=== PATIENT | female | born 1945 | race Caucasian/White ===

== ENCOUNTER 2018-11-30 12:49 | Day surgery (SDC) | payer MEDICARE, OTHER ==
[2018-11-30 13:28] VITALS: RESP 20; TEMP 97.6
[2018-11-30 13:54] LABS: INR 0.9 (<1.2); Prothrombin Time 10.1 sec (9.0-12.0)
[2018-11-30 13:59] LABS: Mean Platelet Volume 6.9; Platelet Count 513 k/uL (150-450)
[2018-11-30 14:58] VITALS: BP 142/62; PULSE 84
--- NOTE | 2018-11-30 16:05 | US ---
EXAMINATION TYPE: US paracentesis abd w/image DATE OF EXAM: 11/30/2018 COMPARISON: NONE HISTORY: Ascites. PROCEDURE: Maximal barrier technique was utilized. The skin overlying a suitable pocket of fluid was localized with ultrasound and the overlying skin was prepped and draped. Ultrasound was utilized with sterile technique. Lidocaine was used for local anesthesia and a skin thelma made with a scalpel. Catheter was advanced under direct ultrasound guidance into a suitable pocket of fluid and approximately 5 liters of serous fluid were removed. Catheter was withdrawn and hemostasis achieved. There is no immediate complication; the patient is discharged in stable condition. IMPRESSION: STATUS POST ULTRASOUND GUIDED PARACENTESIS FOR PALLIATION OF ASCITES. THIS PROCEDURE WA S PERFORMED BY THE UNDERSIGNED.
== END 2018-11-30 13:10 | disposition home or self-care (01) ==
LOC: RADPROMAIN 12:49
PROVIDERS: ATTEND Internal Medicine Hematology & Oncology
DX: R18.8 Other ascites (principal); C48.2 Malignant neoplasm of peritoneum, unspecified
CPT/HCPCS: 36415; 49083; 82565; 85049; 85610

== ENCOUNTER 2018-12-07 12:27 | Day surgery (SDC) | payer MEDICARE, OTHER ==
[2018-12-07 13:01] LABS: Platelet Count 369 k/uL (150-450)
[2018-12-07 13:27] LABS: INR 0.9 (<1.2); Prothrombin Time 9.5 sec (9.0-12.0)
[2018-12-07 13:56] VITALS: RESP 18
[2018-12-07 14:09] VITALS: TEMP 98.5
--- NOTE | 2018-12-07 15:30 | US ---
Therapeutic paracentesis. DATE OF EXAM: 12/07/2018 CLINICAL HISTORY: Ascites The procedure was discussed with the patient. The risks, complications, benefits, and alternatives we re discussed and any questions were answered. Informed consent was obtained. The patient was placed s upine on the ultrasound table and prepped and draped in the usual sterile fashion. All elements of maximal barrier technique were utilized. Under ultrasound guidance, access into the left lower quadrant was obtained, via the paracentesis catheter system and direct ultrasound guidance . Approximately 2.8 liters of straw-colored fluid was removed. The patient was stable throughout the pr ocedure and remained stable upon discharge from Department of Radiology. IMPRESSION: Successful therapeutic paracentesis under ultrasound guidance.
[2018-12-07 15:41] VITALS: BP 132/70; PULSE 88
== END 2018-12-07 15:30 | disposition home or self-care (01) ==
LOC: RADPROMAIN 12:27
PROVIDERS: ATTEND Internal Medicine Hematology & Oncology
DX: R18.8 Other ascites (principal); C48.2 Malignant neoplasm of peritoneum, unspecified
CPT/HCPCS: 36415; 49083; 85049; 85610

== ENCOUNTER 2019-01-04 12:52 | Day surgery (SDC) | payer MEDICARE, OTHER ==
[2019-01-04 13:30] LABS: Mean Platelet Volume 6.1; Platelet Count 310 k/uL (150-450)
[2019-01-04 13:35] LABS: INR 0.9 (<1.2); Prothrombin Time 9.7 sec (9.0-12.0)
[2019-01-04 13:44] VITALS: RESP 16; TEMP 97.2
[2019-01-04 15:05] VITALS: BP 135/79; PULSE 78
--- NOTE | 2019-01-04 16:13 | US ---
EXAMINATION TYPE: US paracentesis abd w/image DATE OF EXAM: 01/04/2019 COMPARISON: NONE HISTORY: Ascites. PROCEDURE: Maximal barrier technique was utilized. The skin overlying a suitable pocket of fluid was localized with ultrasound and the overlying skin was prepped and draped. Ultrasound was utilized with sterile technique. Lidocaine was used for local anesthesia and a skin thelma made with a scalpel. Catheter was advanced under direct ultrasound guidance into a suitable pocket of fluid and approximately 1.3 liter s of serous fluid were removed. Catheter was withdrawn and hemostasis achieved. There is no immedia te complication; the patient is discharged in stable condition. IMPRESSION: STATUS POST ULTRASOUND GUIDED PARACENTESIS FOR PALLIATION OF ASCITES. THIS PROCEDURE WA S PERFORMED BY THE UNDERSIGNED.
== END 2019-01-04 15:00 | disposition home or self-care (01) ==
LOC: RADPROMAIN 12:52
PROVIDERS: ATTEND Internal Medicine Hematology & Oncology
DX: R18.8 Other ascites (principal); C48.2 Malignant neoplasm of peritoneum, unspecified
CPT/HCPCS: 36415; 49083; 85049; 85610

== ENCOUNTER → 2019-01-13 | Outpatient (CLI) | payer MEDICARE, OTHER ==
[2019-01-13 13:40] LABS: Blood Urea Nitrogen 19 mg/dL (7-17)
--- NOTE | 2019-01-13 14:46 | CT ---
EXAMINATION TYPE: CT ChestAbdPelvis w con DATE OF EXAM: 01/13/2019 COMPARISON: None HISTORY: Ovarian CA CT DLP: 1393 mGycm CONTRAST: CT scan of the chest, abdomen and pelvis is performed with Oral Contrast and with IV Contrast, patien t injected with 100 mL of Isovue 300. CT Chest: LUNGS: The lungs are clear and free of infiltrate or atelectasis. No pulmonary nodule or mass is det ected. No pleural effusion or CT evidence of interstitial lung disease. MEDIASTINUM: Thoracic aorta is of normal caliber. The heart is not enlarged. No evidence for media stinal mass or adenopathy. HILAR STRUCTURES: No evidence for mass. No hilar adenopathy is appreciated. OTHER: No significant abnormality. CONTRAST CT ABDOMEN AND PELVIS FINDINGS: LIVER/GB: No calcified gallstones. Hepatomegaly with underlying hepatic steatosis. No space occupy ing hepatic lesion. Biliary tree is of normal caliber. PANCREAS: No inflammation. No distinct mass. SPLEEN: No splenic enlargement. No lesion seen. Splenic granulomas. ADRENALS: No nodule. No thickening. KIDNEYS/BLADDER: No hydronephrosis. No nephrolithiasis. No disctinct renal mass. BOWEL: Normal appendix. Normal bowel caliber. No inflammation. GENITAL ORGANS: Adnexal nodularity identified. The uterus is grossly unremarkable. LYMPH NODES: No greater than 1cm abdominal or pelvic lymph nodes are appreciated. AORTA: No significant abnormality. OSSEOUS STRUCTURES: No significant abnormality is seen. OTHER: There is evidence for ascites within the upper abdomen and pelvis. There is omental and perito violeta nodularity identified. Largest nodules are seen within the left upper quadrant measuring 1.6 cm as well as adjacent to the transverse colon measuring 2.1 cm. Fluid within the left inguinal canal. IMPRESSION: 1. 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 2. Hepatomegaly with mild underlying hepatic steatosis.
== END | disposition home or self-care (01) ==
LOC: RADCTMAIN 12:44
PROVIDERS: ATTEND Internal Medicine Hematology & Oncology
DX: C48.2 Malignant neoplasm of peritoneum, unspecified (principal); R16.0 Hepatomegaly, not elsewhere classified
CPT/HCPCS: 82565; 84520; 71260; 74177; 36415; Q9967

== ENCOUNTER 2019-03-08 12:15 | Day surgery (SDC) | payer MEDICARE, OTHER ==
[2019-03-08 12:53] VITALS: RESP 16; TEMP 98.4
[2019-03-08 13:03] LABS: Mean Platelet Volume 6.7; Platelet Count 247 k/uL (150-450)
[2019-03-08 13:06] LABS: INR 0.9 (<1.2); Prothrombin Time 10.1 sec (9.0-12.0)
[2019-03-08 14:19] VITALS: BP 143/78; PULSE 80
--- NOTE | 2019-03-08 18:13 | US ---
EXAMINATION TYPE: US paracentesis abd w/image DATE OF EXAM: 03/08/2019 COMPARISON: NONE HISTORY: Ascites. PROCEDURE: Maximal barrier technique was utilized. The skin overlying a suitable pocket of fluid was localized with ultrasound and the overlying skin was prepped and draped. Ultrasound was utilized with sterile technique. Lidocaine was used for local anesthesia and a skin thelma made with a scalpel. Catheter was advanced under direct ultrasound guidance into a suitable pocket of fluid and approximately 2 liters of serous sanguinous fluid were removed. Catheter was withdrawn and hemostasis achieved. There is n o immediate complication; the patient is discharged in stable condition. IMPRESSION: STATUS POST ULTRASOUND GUIDED PARACENTESIS FOR PALLIATION OF ASCITES. THIS PROCEDURE WA S PERFORMED BY THE UNDERSIGNED.
== END 2019-03-08 14:00 | disposition home or self-care (01) ==
LOC: RADPROMAIN 12:15
PROVIDERS: ATTEND Internal Medicine Hematology & Oncology
DX: R18.8 Other ascites (principal)
CPT/HCPCS: 36415; 49083; 85049; 85610

== ENCOUNTER → 2019-03-23 | Outpatient (CLI) | payer MEDICARE, OTHER ==
[2019-03-23 09:41] LABS: African American GFR (CKD) >90 (>60 ml/min/1.73 sqM); Blood Urea Nitrogen 17 mg/dL (7-17); Non-African American GFR(CKD) 90 (>60 ml/min/1.73 sqM)
--- NOTE | 2019-03-23 11:19 | CT ---
EXAMINATION TYPE: CT ChestAbdPelvis w con DATE OF EXAM: 03/23/2019 COMPARISON: 01/13/2019 HISTORY: Peritoneal cancer CT DLP: 882.10 mGycm Automated exposure control for dose reduction was used. CONTRAST: CT scan of the chest, abdomen and pelvis is performed with Oral Contrast and with IV Contrast, patien t injected with 100 ml mL of Isovue 300. FINDINGS: CT Chest: LUNGS: The lungs are clear and free of infiltrate or atelectasis. On axial image 37 there is a 1 mm n odule in the right middle lobe small to characterize but retrospectively stable. MEDIASTINUM: Thoracic aorta is of normal caliber. The heart is not enlarged. No evidence for mediasti nal mass or adenopathy. HILAR STRUCTURES: No evidence for mass. No hilar adenopathy is appreciated. OTHER: No significant abnormality. CONTRAST CT ABDOMEN AND PELVIS FINDINGS: LIVER/GB: No calcified gallstones. Hepatomegaly with underlying hepatic steatosis. No space occupying hepatic lesion. Biliary tree is of normal caliber. PANCREAS: No inflammation. No distinct mass. SPLEEN: No splenic enlargement. No lesion seen. Splenic granulomas. ADRENALS: No nodule. No thickening. KIDNEYS/BLADDER: No hydronephrosis. No nephrolithiasis. Multiple hypodensities within the kidneys are stable and suggestive of renal cysts. BOWEL: Normal appendix. Normal bowel caliber. No inflammation. LYMPH NODES: No greater than 1cm abdominal or pelvic lymph nodes are appreciated. AORTA: No significant abnormality. OSSEOUS STRUCTURES: Hypertrophic and degenerative changes of the spine with facet arthropathy are not ed and grade 1 anterolisthesis L4 and L5. No definite destructive changes.. OTHER: Appears to be interval increase in amount of ascites. Marked heterogeneity involving the pelvi s may represent adnexal masses. Particularly the patient has a history of ovarian cancer. Ascitic flu id extends into the left inguinal canal. Heterogeneous appearing mass in the pelvis measures 9.1 x 9. 2 cm and is similar appearance to the prior exam.. There is omental and peritoneal thickening which is stable and suggestive of omental metastasis. The previous nodule noted within the left upper quadrant measuring 1.6 cm is not well-seen on today's exam. Previously noted nodule adjacent to the transverse colon measuring 2.1 cm. Again measures 2.1 cm and is stable. Stable 0.7 mm nodule left upper quadrant axial image 65. Additional punctate areas of omental nodular ity are also stable Fluid within the left inguinal canal. IMPRESSION: 1. There is interval resolution of a area of omental nodularity in the left upper quadrant which prev iously measured 1.6 cm. Without 2. The 2.1 cm area of suspected omental nodularity is stable and unchanged in size or morphology. 3. Marked heterogeneous appearance the pelvis again noted likely reflecting the patient's underlying history of ovarian malignancy. This demonstrates no significant interval appearance in size relative to the prior exam. 4. There is interval increase in the amount of ascites 5. Hepatomegaly with mild underlying hepatic steatosis. 6. Additional anterior omental thickening and subcentimeter nodularity is stable.
== END | disposition home or self-care (01) ==
LOC: RADCTMAIN 08:58
PROVIDERS: ATTEND Internal Medicine Hematology & Oncology
DX: K76.0 Fatty (change of) liver, not elsewhere classified (principal); R18.8 Other ascites; K66.8 Other specified disorders of peritoneum; C48.2 Malignant neoplasm of peritoneum, unspecified
CPT/HCPCS: 36415; 71260; 74177; 82565; 84520

== ENCOUNTER → 2019-04-14 | Outpatient (CLI) | payer MEDICARE, OTHER ==
--- NOTE | 2019-04-14 19:00 | ECHOF ---
Referral Reason:C56.9Malignant neoplasm of unspecified ovary MEASUREMENTS -------- HEIGHT: 152.4 cm WEIGHT: 69.9 kg BP: RVIDd: 3.5 cm (< 3.3) IVSd: 1.2 cm (0.6 - 1.1) LVIDd: 4.0 cm (3.9 - 5.3) LVPWd: 1.3 cm (0.6 - 1.1) IVSs: 1.5 cm LVIDs: 2.9 cm LVPWs: 1.4 cm LAESV Index (A-L): 15.98 ml/m Ao Diam: 2.9 cm (2.0 - 3.7) AV Cusp: 1.7 cm (1.5 - 2.6) LA Diam: 3.7 cm (2.7 - 3.8) EPSS: 1.5 cm MV E Charlie: 0.58 m/s MV DecT: 197 ms MV A Charlie: 1.03 m/s MV E/A Ratio: 0.57 RAP: 5.00 mmHg RVSP: 26.10 mmHg MV EF SLOPE: 47.69 mm/s (70 - 150) MV EXCURSION: 0.98 cm (> 18.000) FINDINGS -------- Sinus rhythm. This was a technically adequate study. The left ventricular size is normal. There is mild concentric left ventricular hypertrophy. Overa ll left ventricular systolic function is normal with, an EF between 55 - 60 %. The diastolic fillin g pattern is normal for the age of the patient. The right ventricle is mildly enlarged. Left atrium is normal size by volume. The right atrial size is normal. Interatrial and interventricular septum intact. The aortic valve is trileaflet and appears structurally normal. There is no evidence of aortic regu rgitation. There is no evidence of aortic stenosis. There is trace mitral regurgitation. Mild tricuspid regurgitation present. There is no evidence of pulmonary hypertension. The right v entricular systolic pressure, as measured by Doppler, is 26.10mmHg. Trace/mild (physiologic) pulmonic regurgitation. The aortic root size is normal. The inferior vena cava is mildly dilated. There is no pericardial effusion. CONCLUSIONS -------- 1. Sinus rhythm. 2. This was a technically adequate study. 3. The left ventricular size is normal. 4. There is mild concentric left ventricular hypertrophy. 5. Overall left ventricular systolic function is normal with, an EF between 55 - 60 %. 6. The diastolic filling pattern is normal for the age of the patient. 7. The right ventricle is mildly enlarged. 8. Left atrium is normal size by volume. 9. The right atrial size is normal. 10. Interatrial and interventricular septum intact. 11. The aortic valve is trileaflet and appears structurally normal. 12. There is no evidence of aortic regurgitation. 13. There is no evidence of aortic stenosis. 14. There is trace mitral regurgitation. 15. Mild tricuspid regurgitation present. 16. There is no evidence of pulmonary hypertension. 17. The right ventricular systolic pressure, as measured by Doppler, is 26.10mmHg. 18. Trace/mild (physiologic) pulmonic regurgitation. 19. The aortic root size is normal. 20. The inferior vena cava is mildly dilated. 21. There is no pericardial effusion. RAIL SWITCHMAN: Peyton Gonzalez RDCS
== END | disposition home or self-care (01) ==
LOC: RADECHMAIN 13:48
PROVIDERS: ATTEND Obstetrics & Gynecology
DX: I07.1 Rheumatic tricuspid insufficiency (principal); I87.8 Other specified disorders of veins; C56.9 Malignant neoplasm of unspecified ovary
CPT/HCPCS: 93306

== ENCOUNTER 2019-05-18 12:59 | Day surgery (SDC) | payer MEDICARE, OTHER ==
[2019-05-18 13:31] VITALS: TEMP 97.8
[2019-05-18 13:38] LABS: Mean Platelet Volume 5.6; Platelet Count 363 k/uL (150-450)
[2019-05-18 14:20] LABS: Prothrombin Time 10.3 sec (9.0-12.0)
[2019-05-18 15:37] VITALS: RESP 16
[2019-05-18 15:58] VITALS: BP 128/60; PULSE 73
--- NOTE | 2019-05-18 16:42 | US ---
EXAMINATION TYPE: US paracentesis abd w/image DATE OF EXAM: 05/18/2019 COMPARISON: NONE HISTORY: Ascites. PROCEDURE: Maximal barrier technique was utilized. The skin overlying a suitable pocket of fluid was localized with ultrasound and the overlying skin was prepped and draped. Ultrasound was utilized with sterile technique. Lidocaine was used for local anesthesia and a skin thelma made with a scalpel. Catheter was advanced under direct ultrasound guidance into a suitable pocket of fluid and approximately 6.5 liter s of serous sanguinous fluid were removed. Catheter was withdrawn and hemostasis achieved. There is no immediate complication; the patient is discharged in stable condition. IMPRESSION: STATUS POST ULTRASOUND GUIDED PARACENTESIS FOR PALLIATION OF ASCITES. THIS PROCEDURE WA S PERFORMED BY THE UNDERSIGNED.
== END 2019-05-18 15:49 | disposition home or self-care (01) ==
LOC: RADPROMAIN 12:59
PROVIDERS: ATTEND Internal Medicine Hematology & Oncology
DX: R18.8 Other ascites (principal); C48.2 Malignant neoplasm of peritoneum, unspecified
CPT/HCPCS: 49083; 82565; 85049; 85610; 85730

== ENCOUNTER 2019-06-12 12:21 | Day surgery (SDC) | payer MEDICARE, OTHER ==
[2019-06-12 12:59] VITALS: RESP 18; TEMP 98
[2019-06-12 13:04] LABS: Mean Platelet Volume 6.8; Platelet Count 254 k/uL (150-450)
[2019-06-12 13:29] LABS: INR 0.9 (<1.2); Prothrombin Time 9.6 sec (9.0-12.0)
[2019-06-12 15:18] VITALS: BP 129/70; PULSE 75
--- NOTE | 2019-06-12 15:56 | US ---
EXAMINATION TYPE: US paracentesis abd w/image DATE OF EXAM: 06/12/2019 COMPARISON: NONE HISTORY: Ascites. PROCEDURE: Maximal barrier technique was utilized. The skin overlying a suitable pocket of fluid was localized with ultrasound and the overlying skin was prepped and draped. Ultrasound was utilized with sterile technique. Lidocaine was used for local anesthesia and a skin thelma made with a scalpel. Catheter was advanced under direct ultrasound guidance into a suitable pocket of fluid and approximately 5.9 liter s of sanguinous fluid were removed. Catheter was withdrawn and hemostasis achieved. There is no imm ediate complication; the patient is discharged in stable condition. IMPRESSION: STATUS POST ULTRASOUND GUIDED PARACENTESIS FOR PALLIATION OF ASCITES. THIS PROCEDURE WA S PERFORMED BY THE UNDERSIGNED.
== END 2019-06-12 15:10 | disposition home or self-care (01) ==
LOC: RADPROMAIN 12:21
PROVIDERS: ATTEND Internal Medicine Hematology & Oncology
DX: R18.8 Other ascites (principal); C48.2 Malignant neoplasm of peritoneum, unspecified
CPT/HCPCS: 36415; 49083; 85049; 85610

== ENCOUNTER 2019-06-29 12:24 | Day surgery (SDC) | payer MEDICARE, OTHER ==
[2019-06-29 12:53] LABS: Mean Platelet Volume 6.7; Platelet Count 178 k/uL (150-450)
[2019-06-29 12:56] VITALS: RESP 16; TEMP 98.4
[2019-06-29 14:25] VITALS: BP 119/71; PULSE 76
--- NOTE | 2019-06-29 15:00 | US ---
EXAMINATION TYPE: US paracentesis abd w/image DATE OF EXAM: 06/29/2019 COMPARISON: NONE HISTORY: Ascites. PROCEDURE: Maximal barrier technique was utilized. The skin overlying a suitable pocket of fluid was localized with ultrasound and the overlying skin was prepped and draped. Ultrasound was utilized with sterile technique. Lidocaine was used for local anesthesia and a skin thelma made with a scalpel. Catheter was advanced under direct ultrasound guidance into a suitable pocket of fluid and approximately 2.2 liter s of sanguinous fluid were removed. Catheter was withdrawn and hemostasis achieved. There is no imm ediate complication; the patient is discharged in stable condition. IMPRESSION: STATUS POST ULTRASOUND GUIDED PARACENTESIS FOR PALLIATION OF ASCITES. THIS PROCEDURE WA S PERFORMED BY THE UNDERSIGNED.
== END 2019-06-29 14:05 | disposition home or self-care (01) ==
LOC: RADPROMAIN 12:24
PROVIDERS: ATTEND Internal Medicine Hematology & Oncology
DX: R18.8 Other ascites (principal); C48.2 Malignant neoplasm of peritoneum, unspecified
CPT/HCPCS: 36415; 49083; 85049

== ENCOUNTER → 2019-07-03 | Outpatient (CLI) | payer MEDICARE, OTHER ==
[2019-07-03 12:23] LABS: African American GFR (CKD) >90 (>60 ml/min/1.73 sqM); Blood Urea Nitrogen 16 mg/dL (7-17)
--- NOTE | 2019-07-03 13:54 | CT ---
EXAMINATION TYPE: CT ChestAbdPelvis w con DATE OF EXAM: 07/03/2019 COMPARISON: 03/23/2019 HISTORY: No chest complaints at time of scan CT DLP: 613.2 mGycm CONTRAST: CT scan of the chest, abdomen and pelvis is performed with Oral Contrast and with IV Contrast, patien t injected with 100 mL of Isovue 300. CT Chest: LUNGS: The lungs are clear and free of infiltrate or atelectasis. No pulmonary nodule or mass is det ected. No pleural effusion or CT evidence of interstitial lung disease. MEDIASTINUM: Thoracic aorta is of normal caliber. The heart is not enlarged. No evidence for media stinal mass or adenopathy. HILAR STRUCTURES: No evidence for mass. No hilar adenopathy is appreciated. OTHER: No significant abnormality. CONTRAST CT ABDOMEN AND PELVIS FINDINGS: LIVER/GB: Redemonstrated is hepatomegaly with underlying hepatic steatosis. No calcified gallstones . No space occupying hepatic lesion. Biliary tree is of normal caliber. PANCREAS: No inflammation. No distinct mass. SPLEEN: No splenic enlargement. No lesion seen. ADRENALS: No nodule. No thickening. KIDNEYS/BLADDER: No hydronephrosis. No nephrolithiasis. No disctinct renal mass. BOWEL: Normal appendix. Normal bowel caliber. No inflammation. GENITAL ORGANS: No gross abnormality. LYMPH NODES: No greater than 1cm abdominal or pelvic lymph nodes are appreciated. AORTA: No significant abnormality. OSSEOUS STRUCTURES: No significant abnormality is seen. OTHER: There is persistent moderate ascites throughout the abdomen and pelvis. Areas of scattered ome ntal nodularity persists. The largest nodule is seen at the midline anteriorly image 73 measures 1.7 cm previously noted nodule at the level of the umbilicus currently measures 1.2 cm versus 2 cm previo usly. Large heterogenous mass which is partially cystic partially solid within the pelvis is again no tuan and measures an estimated 8.5 x 7.8 cm versus 7.9 x 7.9 cm previously. There is increasing hypode nsity within the mass may reflect interval calcification. IMPRESSION: 1. Persistent omental caking and nodularity which appears essentially unchanged although there is a s emperatriz new nodule identified as discussed above. 2. The amount of ascites throughout the abdomen and pelvis remains essentially unchanged. 3. Stable complex pelvic mass.
== END | disposition home or self-care (01) ==
LOC: RADCTMAIN 11:46
PROVIDERS: ATTEND Internal Medicine Hematology & Oncology
DX: R18.8 Other ascites (principal); R91.1 Solitary pulmonary nodule; C48.2 Malignant neoplasm of peritoneum, unspecified
CPT/HCPCS: 82565; 84520; 71260; 74177; 36415; Q9967 ×2

== ENCOUNTER 2019-07-21 12:21 | Day surgery (SDC) | payer MEDICARE, OTHER ==
[2019-07-21 12:49] LABS: Platelet Count 185 k/uL (150-450)
[2019-07-21 12:54] VITALS: RESP 16; TEMP 97.7
[2019-07-21 12:54] LABS: INR 0.9 (<1.2); Prothrombin Time 10.2 sec (9.0-12.0)
[2019-07-21 14:34] VITALS: BP 119/61; PULSE 75
--- NOTE | 2019-07-21 15:47 | US ---
EXAMINATION TYPE: US paracentesis abd w/image DATE OF EXAM: 07/21/2019 COMPARISON: NONE HISTORY: Ascites. PROCEDURE: Maximal barrier technique was utilized. The skin overlying a suitable pocket of fluid was localized with ultrasound and the overlying skin was prepped and draped. Ultrasound was utilized with sterile technique. Lidocaine was used for local anesthesia and a skin thelma made with a scalpel. Catheter was advanced under direct ultrasound guidance into a suitable pocket of fluid and approximately 3 liters of dark sanguinous fluid were removed. Catheter was withdrawn and hemostasis achieved. There is no immediate complication; the patient is discharged in stable condition. IMPRESSION: STATUS POST ULTRASOUND GUIDED PARACENTESIS FOR PALLIATION OF ASCITES. THIS PROCEDURE WA S PERFORMED BY THE UNDERSIGNED.
== END 2019-07-21 14:25 | disposition home or self-care (01) ==
LOC: RADPROMAIN 12:21
PROVIDERS: ATTEND Internal Medicine Hematology & Oncology
DX: R18.8 Other ascites (principal); C48.2 Malignant neoplasm of peritoneum, unspecified
CPT/HCPCS: 36415; 49083; 85049; 85610

== ENCOUNTER 2019-08-15 14:31 | Inpatient (IN) | payer MEDICARE, OTHER ==
[2019-08-15] MEDS ORDERED: MORPHINE SULFATE 4 MG/ML SYRINGE IV STA (15:00)
[2019-08-15] MEDS ORDERED: SODIUM CHLORIDE 0.9% 1,000 ML IV STA (15:00)
[2019-08-15] MEDS ORDERED: ONDANSETRON 4 MG/2 ML VIAL IVP STA (15:00)
[2019-08-15 15:25] LABS: Basophils % (A) 0 %; Eosinophils % (A) 0 %; HGB 11.3 gm/dL (11.4-16.0); Lymphocytes # (A) 0.4 k/uL (1.0-4.8); Lymphocytes % (A) 4 %; MCH 32.4 pg (25.0-35.0); MCHC 33.3 g/dL (31.0-37.0); MCV 97.3 fL (80.0-100.0); Mean Platelet Volume 7.1; Monocytes # (A) 0.4 k/uL (0-1.0); Monocytes % (A) 5 %; Neutrophils # (A) 8.2 k/uL (1.3-7.7); Neutrophils % (A) 89 %; Platelet Count 185 k/uL (150-450); RBC 3.49 m/uL (3.80-5.40); RDW 15.6 % (11.5-15.5); WBC 9.1 k/uL (3.8-10.6)
[2019-08-15 15:32] LABS: ALT 8 U/L (4-34); AST 22 U/L (14-36); African American GFR (CKD) >90 (>60 ml/min/1.73 sqM); Albumin 3.1 g/dL (3.5-5.0); Alkaline Phosphatase 95 U/L (38-126); Amylase <30 U/L (30-110); Anion Gap 6 mmol/L; Blood Urea Nitrogen 16 mg/dL (7-17); Calcium 8.9 mg/dL (8.4-10.2); Carbon Dioxide 25 mmol/L (22-30); Chloride 106 mmol/L (98-107); Glucose 147 mg/dL (74-99); Non-African American GFR(CKD) >90 (>60 ml/min/1.73 sqM); Potassium 3.8 mmol/L (3.5-5.1); Sodium 137 mmol/L (137-145); Total Bilirubin 1.1 mg/dL (0.2-1.3); Total Protein 5.9 g/dL (6.3-8.2)
[2019-08-15 15:35] LABS: Partial Thromboplastin Time 25.6 sec (22.0-30.0); Prothrombin Time 10.5 sec (9.0-12.0)
--- NOTE | 2019-08-15 15:39 | ED ---
Abdominal Pain HPI - General Chief Complaint: Abdominal Pain Stated Complaint: ABD PAIN Time Seen by Provider: 08/15/19 14:39 Source: patient, RN notes reviewed, old records reviewed Mode of arrival: EMS - History of Present Illness Initial Comments: 73-year-old female presents emergency department today with chief complaint of 3 days of right-sided rib pain, complains of some shortness of breath. Patient states that she is also had some low-grade fevers. She does have history of stage IV ovarian cancer and significant ascites. reports that she had chemotherapy approximately one week ago. Patient states that she typically has paracentesis once a month. She is scheduled for an upcoming paracentesis. Patient states that she's been taking Tylenol at home. - Related Data Home Medications Medication Instructions Recorded Confirmed Vitamin E (Dl,Tocopheryl Acet) 800 unit PO DAILY 05/15/19 07/21/19 [Vitamin E] Non Formulary Drug 1 each IV ONCE 06/12/19 07/21/19 Allergies Allergy/AdvReac Type Severity Reaction Status Date / Time No Known Allergies Allergy Verified 07/21/19 12:51 Review of Systems ROS Statement: Those systems with pertinent positive or pertinent negative responses have been documented in the HPI. ROS Other: All systems not noted in ROS Statement are negative. Past Medical History Past Medical History: Cancer, Hyperlipidemia Additional Past Medical History / Comment(s): chemo started 11/25/18 (plan for 6 treatments) Stage 4 ovarian CA History of Any Multi-Drug Resistant Organisms: None Reported Past Surgical History: Tubal Ligation Additional Past Surgical History / Comment(s): ectopic , multi paracentesis Past Anesthesia/Blood Transfusion Reactions: No Reported Reaction Past Psychological History: Anxiety Smoking Status: Former smoker Past Alcohol Use History: None Reported Past Drug Use History: Marijuana - Past Family History Mother Family Medical History: No Reported History General Exam - General Exam Comments Initial Comments: 73-year-old female. Alert and oriented. General appearance: alert, in no apparent distress Head exam: Present: atraumatic, normocephalic, normal inspection Eye exam: Present: normal appearance, PERRL, EOMI. Absent: scleral icterus, conjunctival injection, periorbital swelling ENT exam: Present: normal exam, mucous membranes moist Neck exam: Present: normal inspection. Absent: tenderness, meningismus, lymphadenopathy Respiratory exam: Present: normal lung sounds bilaterally. Absent: respiratory distress, wheezes, rales, rhonchi, stridor Cardiovascular Exam: Present: regular rate, normal rhythm, normal heart sounds. Absent: systolic murmur, diastolic murmur, rubs, gallop, clicks GI/Abdominal exam: Present: soft, tenderness (Patient has distended abdomen. Right upper quadrant tenderness.), normal bowel sounds. Absent: distended, gu arding, rebound, rigid Extremities exam: Present: normal inspection, full ROM, normal capillary refill. Absent: tenderness, pedal edema, joint swelling, calf tenderness Back exam: Present: normal inspection Neurological exam: Present: alert, oriented X3, CN II-XII intact Psychiatric exam: Present: normal affect, normal mood Skin exam: Present: warm, dry, intact, normal color. Absent: rash Course Vital Signs 08/15/19 08/15/19 08/15/19 14:56 15:04 15:56 Temperature 99.1 F 98.9 F Pulse Rate 91 90 77 Respiratory 17 15 17 Rate Blood Pressure 123/72 123/74 O2 Sat by Pulse 97 97 Oximetry Medical Decision Making - Medical Decision Making Patient is a 73-year-old female with stage IV ovarian cancer. She presents today with her with complaints of right-sided rib pain. She also reports she's been having some shortness of breath. Initial concern was for pulmonary embolus. Lab work was obtained. No leukocytosis. EKG shows no ST changes. Patient's CT [facility] chest was completed. There is positive for small right pulmonary artery pulmonary emboli. Patient does have significant ascites as well and is scheduled paracentesis on Wednesday. I discussed patient's right- sided pain is likely related to the PE. Patient is a history of high intensity heparin. Discussed the case with Dr. Yuan. Discusses asymmetry hospitalist. Will have consult to Dr. Gilman patient's oncologist. - Lab Data Result diagrams: 08/15/19 14:45 08/15/19 14:45 Lab Results 08/15/19 08/15/19 08/15/19 Range/Units 14:45 14:45 14:45 WBC 9.1 (3.8-10.6) k/uL RBC 3.49 L (3.80-5.40) m/uL Hgb 11.3 L (11.4-16.0) gm/dL Hct 34.0 (34.0-46.0) % MCV 97.3 (80.0-100.0) fL MCH 32.4 (25.0-35.0) pg MCHC 33.3 (31.0-37.0) g/dL RDW 15.6 H (11.5-15.5) % Plt Count 185 (150-450) k/uL Neutrophils % 89 % Lymphocytes % 4 % Monocytes % 5 % Eosinophils % 0 % Basophils % 0 % Neutrophils # 8.2 H (1.3-7.7) k/uL Lymphocytes # 0.4 L (1.0-4.8) k/uL Monocytes # 0.4 (0-1.0) k/uL Eosinophils # 0.0 (0-0.7) k/uL Basophils # 0.0 (0-0.2) k/uL PT 10.5 (9.0-12.0) sec INR 1.0 (<1.2) APTT 25.6 (22.0-30.0) sec Sodium 137 (137-145) mmol/L Potassium 3.8 (3.5-5.1) mmol/L Chloride 106 (98-107) mmol/L Carbon Dioxide 25 (22-30) mmol/L Anion Gap 6 mmol/L BUN 16 (7-17) mg/dL Creatinine 0.56 (0.52-1.04) mg/dL Est GFR (CKD-EPI)AfAm >90 (>60 ml/min/1.73 sqM) Est GFR (CKD-EPI)NonAf >90 (>60 ml/min/1.73 sqM) Glucose 147 H (74-99) mg/dL Plasma Lactic Acid David (0.7-2.0) mmol/L Calcium 8.9 (8.4-10.2) mg/dL Total Bilirubin 1.1 (0.2-1.3) mg/dL AST 22 (14-36) U/L ALT 8 (4-34) U/L Alkaline Phosphatase 95 (38-126) U/L Total Protein 5.9 L (6.3-8.2) g/dL Albumin 3.1 L (3.5-5.0) g/dL Amylase <30 L (30-110) U/L Lipase 15 L (23-300) U/L 12/24/19 Range/Units 14:45 WBC (3.8-10.6) k/uL RBC (3.80-5.40) m/uL Hgb (11.4-16.0) gm/dL Hct (34.0-46.0) % MCV (80.0-100.0) fL MCH (25.0-35.0) pg MCHC (31.0-37.0) g/dL RDW (11.5-15.5) % Plt Count (150-450) k/uL Neutrophils % % Lymphocytes % % Monocytes % % Eosinophils % % Basophils % % Neutrophils # (1.3-7.7) k/uL Lymphocytes # (1.0-4.8) k/uL Monocytes # (0-1.0) k/uL Eosinophils # (0-0.7) k/uL Basophils # (0-0.2) k/uL PT (9.0-12.0) sec INR (<1.2) APTT (22.0-30.0) sec Sodium (137-145) mmol/L Potassium (3.5-5.1) mmol/L Chloride (98-107) mmol/L Carbon Dioxide (22-30) mmol/L Anion Gap mmol/L BUN (7-17) mg/dL Creatinine (0.52-1.04) mg/dL Est GFR (CKD-EPI)AfAm (>60 ml/min/1.73 sqM) Est GFR (CKD-EPI)NonAf (>60 ml/min/1.73 sqM) Glucose (74-99) mg/dL Plasma Lactic Acid David 1.1 (0.7-2.0) mmol/L Calcium (8.4-10.2) mg/dL Total Bilirubin (0.2-1.3) mg/dL AST (14-36) U/L ALT (4-34) U/L Alkaline Phosphatase (38-126) U/L Total Protein (6.3-8.2) g/dL Albumin (3.5-5.0) g/dL Amylase (30-110) U/L Lipase (23-300) U/L 08/15/19 16:39 EKG shows normal sinus rhythm with anterior fascicular block. Nonspecific ST-T wave adamantly. Abnormal EKG. Ventricular rate of 81 bpm.. Intervals 182 ms. QRS duration 90 ms. QTc is 300/348 ms. - Radiology Data Radiology results: report reviewed CT [facility] chest shows small emboli in the right lower lobe pulmonary artery. Right lower lobe infiltrate and atelectasis and right pleural effusion. Evidence of abdominal ascites. Disposition Clinical Impression: Pulmonary emboli, Carcinoma of ovary, stage 4, Ascites Disposition: ADMITTED IP TO THIS HOSP Condition: Stable Is patient prescribed a controlled substance at d/c from ED?: No Referrals: Tanner Luna MD [Primary Care Provider] - 1-2 days Time of Disposition: 16:44
--- NOTE | 2019-08-15 16:13 | XR ---
EXAMINATION TYPE: XR chest 2V DATE OF EXAM: 08/15/2019 COMPARISON: NONE HISTORY: Short of breath TECHNIQUE: 2 views FINDINGS: There is elevated right diaphragm. There is linear density at the right lung base. There is old fracture left clavicle. There is no heart failure. There are densely calcified mediastinal granu franko. Bony thorax is intact. IMPRESSION: There is some scarring and atelectasis right lung base. No heart failure seen. Old granul omatous disease.
[2019-08-15] MEDS ORDERED: HEPARIN SODIUM,PORCINE 10,000 UNIT/ML 1 ML VIAL IV ONE (16:26)
[2019-08-15] MEDS ORDERED: HEPARIN SODIUM,PORCINE 5,000 UNIT/ML 1 ML VIAL IV PRN (16:26)
--- NOTE | 2019-08-15 16:29 | CT ---
EXAMINATION TYPE: CT chest angio for PE DATE OF EXAM: 08/15/2019 COMPARISON: HISTORY: Right rib pain, Hx of ovarian CA CT DLP: 193.8 mGycm Automated exposure control for dose reduction was used. CONTRAST: Performed with IV Contrast, patient injected with 100 mL of Isovue 370. There are 3-D post processed images. There is some infiltrate and atelectasis in the right lower lobe. There is right pleural effusion. Th ere is no pericardial effusion. There is mild pleural thickening in the lingula left upper lobe. Ther e is moderate abdominal ascites. Liver margin is irregular suggestive of cirrhosis. Clinical correlat ion recommended. There are large pulmonary arteries. There are filling defects in the right lower lobe pulmonary arter y. Right ventricle has normal size. There is no mediastinal adenopathy. Thoracic aorta shows no aneurysm or dissection. Ascending aorta m easures 2.8 cm. The bony thorax is intact. IMPRESSION: Small emboli in the right lower lobe pulmonary artery. Right lower lobe infiltrate and atelectasis an d right pleural effusion. Abdominal ascites. Exam was discussed with Padmini Metcalf at 4:30 PM.
[2019-08-15] MEDS ORDERED: HYDROmorphone 1 MG/ML 1 ML SYRINGE IVP STA (16:45)
[2019-08-15] MEDS ORDERED: NALOXONE 0.4 MG/ML 1 ML VIAL IV PRN (16:45)
[2019-08-15] MEDS ORDERED: IBUPROFEN 400 MG TAB PO PRN (16:45)
[2019-08-15] MEDS ORDERED: ACETAMINOPHEN TAB 325 MG TAB PO PRN ×2 (16:45→17:36)
--- NOTE | 2019-08-15 16:46 | CT ---
EXAMINATION TYPE: CT abdomen pelvis w con DATE OF EXAM: 08/15/2019 COMPARISON: 07/03/2019 HISTORY: Right rib pain, Hx of ovarian CA CT DLP: 856.4 mGycm Automated exposure control for dose reduction was used. CONTRAST: Performed with IV Contrast, patient injected with 100 mL of Isovue 370. Multiple axial sections were obtained from the diaphragm to the floor the pelvis with intravenous con trast. There is large amount of abdominal ascites. There are numerous calcified splenic granulomata. Liver s hows no focal defect. Margin of the liver is somewhat irregular that could relate to loculated ascite s or cirrhosis. There is no evidence of pancreatic mass. Stomach is intact. There is small hiatal her frandy. There is infiltrate and atelectasis right lower lobe. There is small right pleural effusion. There is no adrenal mass. Kidneys show satisfactory contrast opacification. There is no hydronephrosi s. There are a few bilateral small renal cortical cysts measuring up to 1 cm. There is no retroperito violeta adenopathy. Uterus is anteverted. There are bilateral adnexal cystic masses consistent with larg e ovarian cysts that measure up to 6 cm. There is left inguinal hernia that contains ascites fluid. B ladder distends smoothly. There is no evidence of a bowel obstruction. There is no sign of mesenteric edema. Appendix is not de finitely seen. There is some spurring in the lumbar spine. There is no compression fracture. Posterio r elements are intact. Bony pelvis is intact. IMPRESSION: There is massive abdominal ascites that is increased compared to last exam and consistent with malign ant ascites in this patient with a history of ovary and cancer. There are large bilateral ovarian cys ts. Old granulomatous disease. There is new infiltrate and atelectasis and right pleural effusion and in the right lower lobe compared to old exam. There is left inguinal hernia unchanged.
[2019-08-15] MEDS: HEPARIN SOD,PORK IN 0.45% NACL 25,000 UNIT in 0.45% NACL 1 250ML.BAG IV SCH (16:48)
[2019-08-15] MEDS: SODIUM CHLORIDE 0.9% 1,000 ML IV SCH (17:12)
[2019-08-15 17:22] LABS: Appearance,Urine Clear (Clear); Bilirubin,Urine Negative (Negative); Blood,Urine Negative (Negative); Color,Urine Yellow; Glucose,Urine (UA) Negative (Negative); Ketones,Urine 1+ (Negative); Leukocyte Esterase,Urine Trace (Negative); Mucus,Urine Occasional /hpf; Nitrite,Urine Negative (Negative); PH, Urine 5.5 (5.0-8.0); Protein,Urine Trace (Negative); RBC,Urine 2 /hpf (0-5); Squamous Epithelial Cell,Urine 1 /hpf (0-4); Urobilinogen,Urine <2.0 mg/dL (<2.0); WBC,Urine 4 /hpf (0-5)
[2019-08-15 17:24] LABS: Specific Gravity,Urine >1.050 (1.001-1.035)
[2019-08-15] MEDS ORDERED: KETOROLAC 30 MG/ML 1 ML VIAL IVP PRN (17:28)
[2019-08-15] MEDS ORDERED: SENNOSIDES 8.6 MG TAB PO PRN (17:29)
[2019-08-15] MEDS ORDERED: POLYETHYLENE GLYCOL 3350 17 GM POWD.PACK PO PRN (17:29)
--- NOTE | 2019-08-15 17:36 | P.HPIM ---
History of Present Illness Patient is a pleasant 73-year-old female came in with complaints of right-sided hip pain is nonpleuritic pain and had a CT angios the chest which showed a small pulmonary embolism in the right lower lobe pulmonary artery patient pain is on the right side. Patient had a small right-sided pleural effusion as well. Patient has significant pain in spite of for this being a small PE. Patient was started on IV heparin which will be continued patient not be started on any oral anticoagulation as patient undergoes weekly paracentesis for her ovarian cancer with ascites. Patient completed 5 cycles of chemotherapy with the minimal response to ascites but significant response to see a 120 past for the patient patient had a recent chemotherapy. Patient follows up with Dr. Gilman 4 obesity and cancer as an outpatient. Dr. Gilman was consulted. The challenge here would be coordinating the paracentesis since she's gone away and anti- correlation and discuss with radiologist Dr. Roe who does her paracentesis and probably may need Lovenox rather than Eliquis which can be held 12 hours before the procedure have then 2 days with Eliquis for paracentesis. If Dr. Roe is agreeable not holding Eliquis patient can be started on Eliquis for now will continue with the IV heparin and ordered ultrasound guided paracentesis. Review of Systems REVIEW OF SYSTEMS: CONSTITUTIONAL: No fever, no malaise, no fatigue. HEENT: No recent visual problems or hearing problems. Denied any sore throat. CARDIOVASCULAR: orthopnea, PND, no palpitations, no syncope. PULMONARY: no cough, no hemoptysis. GASTROINTESTINAL: No diarrhea, no nausea, no vomiting, no abdominal pain. NEUROLOGICAL: No headaches, no weakness, no numbness. HEMATOLOGICAL: Denies any bleeding or petechiae. GENITOURINARY: Denies any burning micturition, frequency, or urgency. MUSCULOSKELETAL/RHEUMATOLOGICAL: Denies any joint pain, swelling, or any muscle pain. ENDOCRINE: Denies any polyuria or polydipsia. The rest of the 14-point review of systems is negative. Past Medical History Past Medical History: Cancer, Hyperlipidemia Additional Past Medical History / Comment(s): chemo started 11/25/18 (plan for 6 treatments) Stage 4 ovarian CA History of Any Multi-Drug Resistant Organisms: None Reported Past Surgical History: Tubal Ligation Additional Past Surgical History / Comment(s): ectopic , multi paracentesis Past Anesthesia/Blood Transfusion Reactions: No Reported Reaction Past Psychological History: Anxiety Smoking Status: Former smoker Past Alcohol Use History: None Reported Past Drug Use History: Marijuana - Past Family History Mother Family Medical History: No Reported History Medications and Allergies Home Medications Medication Instructions Recorded Confirmed Type Vitamin E (Dl,Tocopheryl Acet) 400 unit PO DAILY 05/15/19 08/15/19 History [Vitamin E] Acetaminophen Tab [Tylenol Tab] 650 mg PO Q6H PRN 08/15/19 08/15/19 History Allergies Allergy/AdvReac Type Severity Reaction Status Date / Time No Known Allergies Allergy Verified 08/15/19 17:10 Physical Exam Vitals: Vital Signs Temp Pulse Resp BP Pulse Ox 08/15/19 17:26 98.6 F 71 16 122/71 96 08/15/19 15:56 98.9 F 77 17 123/74 97 08/15/19 15:04 90 15 08/15/19 14:56 99.1 F 91 17 123/72 97 Intake and Output 08/15/19 08/15/19 08/15/19 06:59 14:59 22:59 Intake Total 800 Balance 800 Intake: Amount of Fluid Infused ( 800 ml) Other: Weight 63.049 kg PHYSICAL EXAMINATION: GENERAL: The patient is alert and oriented x3, not in any acute distress. Thin built female isn't bit of distress because of severe pain HEENT: Pupils are round and equally reacting to light. EOMI. No scleral icterus. No conjunctival pallor. Normocephalic, atraumatic. No pharyngeal erythema. No th yromegaly. CARDIOVASCULAR: S1 and S2 present. No murmurs, rubs, or gallops. PULMONARY: Chest is clear to auscultation, no wheezing or crackles. ABDOMEN: Distended nontender significant ascites with tingling numbness as well as fluid MUSCULOSKELETAL: No joint swelling or deformity. EXTREMITIES: No cyanosis, clubbing, or pedal edema. NEUROLOGICAL: Gross neurological examination did not reveal any focal deficits. SKIN: No rashes. Results CBC & Chem 7: 08/15/19 14:45 08/15/19 14:45 Labs: Abnormal Lab Results - Last 24 Hours (Table) 08/15/19 08/15/19 08/15/19 Range/Units 14:45 14:45 16:45 RBC 3.49 L (3.80-5.40) m/uL Hgb 11.3 L (11.4-16.0) gm/dL RDW 15.6 H (11.5-15.5) % Neutrophils # 8.2 H (1.3-7.7) k/uL Lymphocytes # 0.4 L (1.0-4.8) k/uL Glucose 147 H (74-99) mg/dL Total Protein 5.9 L (6.3-8.2) g/dL Albumin 3.1 L (3.5-5.0) g/dL Amylase <30 L (30-110) U/L Lipase 15 L (23-300) U/L Ur Specific [place] >1.050 H (1.001-1.035) Urine Protein Trace H (Negative) Urine Ketones 1+ H (Negative) Ur Leukocyte Esterase Trace H (Negative) Urine Mucus Occasional H (None) /hpf Assessment and Plan Plan: Right lower lobe pulmonary embolism acute: Patient will be on heparin because of above-mentioned issues, oncology will be consulted -Malignant ascites from her ovarian cancer will order ultrasound dated paracentesis therapeutic after which patient will be either started on lovenox or Eliquis. -Pain management with nonsteroidal anti-inflammatories and opiates and bowel regimen for opiate-induced constipation -Stress ulcer prophylaxis with Protonix-hyperlipidemia -Moderate protein calorie malnutrition from cancer cachexia
[2019-08-15] MEDS: HYDROmorphone 1 MG/ML 1 ML SYRINGE IVP PRN (20:31)
[2019-08-15] MEDS: ONDANSETRON 4 MG/2 ML VIAL IVP PRN (23:52)
[2019-08-16] MEDS: HYDROmorphone 1 MG/ML 1 ML SYRINGE IVP PRN ×2 (02:12→11:06)
[2019-08-16 08:37] LABS: African American GFR (CKD) >90 (>60 ml/min/1.73 sqM); Anion Gap 9 mmol/L; Blood Urea Nitrogen 17 mg/dL (7-17); Calcium 9.4 mg/dL (8.4-10.2); Carbon Dioxide 21 mmol/L (22-30); Chloride 107 mmol/L (98-107); Glucose 147 mg/dL (74-99); Non-African American GFR(CKD) >90 (>60 ml/min/1.73 sqM); Sodium 137 mmol/L (137-145)
[2019-08-16 08:50] LABS: Basophils % (A) 0 %; Eosinophils % (A) 0 %; HCT 31.2 % (34.0-46.0); Hypochromasia Moderate; Lymphocytes # (A) 0.7 k/uL (1.0-4.8); Lymphocytes % (A) 5 %; MCH 32.1 pg (25.0-35.0); MCHC 31.1 g/dL (31.0-37.0); Macrocytosis Moderate; Mean Platelet Volume 7.3; Monocytes # (A) 0.5 k/uL (0-1.0); Monocytes % (A) 4 %; Neutrophils # (A) 10.9 k/uL (1.3-7.7); Neutrophils % (A) 89 %; Platelet Count 215 k/uL (150-450); RBC 3.02 m/uL (3.80-5.40); RDW 15.9 % (11.5-15.5); WBC 12.3 k/uL (3.8-10.6)
[2019-08-16 08:57] LABS: HGB 9.7 gm/dL (11.4-16.0); MCV 103.4 fL (80.0-100.0)
[2019-08-16] MEDS ORDERED: PANTOPRAZOLE 40 MG/10 ML VIAL IV SCH (09:00)
[2019-08-16 10:50] LABS: Glucose,Whole Blood 229 mg/dL (75-99)
[2019-08-16] MEDS ORDERED: DEXAMETHASONE SOD PHOSPHATE 10 MG/ML 1 ML VIAL IV STA (12:11)
--- NOTE | 2019-08-16 12:13 | P.PN ---
Subjective Patient Was admitted for pulmonary embolism but patient still has pain in the right side of the chest which she had a pulmonary embolism patient had a syncopal episode in the bathroom which is a brief episode was evidenced by nursing staff. No evidence of bleed but that I had a PTT is elevated to 134 I'll obtain echocardiogram and patient will be started on IV fluids and patient does have ascites hoping to get paracentesis tomorrow after which patient will probably be started on oxygen and patient is also complaining of back pain severe with tingling greater to the both feet when I examined patient had some weakness of 4/5 strength in the left lower extremity because of which are not an MRI of lumbar and thoracic spine constrain her history of cancer and neurology will be consulted. Constitutional: Denied any fatigue denied any fever. Cardio vascular: denied any chest pain, palpitations Gastrointestinal denied any nausea vomiting Pulmonary: Denied any shortness of breath cough Neurologic as mentioned interval history All inpatient medications were reviewed and appropriate changes in these medications as dictated in the interval history and assessment and plan. Objective - Vital Signs Vital signs: Vital Signs Temp 97.8 F 08/16/19 07:55 Pulse 84 08/16/19 07:55 Resp 18 08/16/19 07:55 BP 115/58 08/16/19 07:55 Pulse Ox 94 L 08/16/19 07:55 Intake & Output 08/15/19 08/16/19 08/16/19 18:59 06:59 18:59 Intake Total 800 712.792 200 Balance 800 712.792 200 Weight 63.049 kg 65.1 kg Intake: Amount of Fluid Infused ( 800 ml) Intake, IV Titration 370.792 0 Amount Heparin Sod,Pork in 0.45% 90.792 0 NaCl 25,000 unit In 0.45 % NaCl 1 250ml.bag @ 18 UNITS/KG/HR 11.349 mls/hr IV .Q22H2M JEFF Rx#: [id number] Sodium Chloride 0.9% 1, 200 000 ml @ 100 mls/hr IV . Q10H STA Rx#:[id number] Sodium Chloride 0.9% 1, 80 000 ml @ 20 mls/hr IV . Q24H JEFF Rx#:[id number] Oral 342 200 Other: Voiding Method Toilet # Voids 2 3 - Exam PHYSICAL EXAMINATION: GENERAL: The patient is alert and oriented x3, not in any acute distress. Thin built female isn't bit of distress because of severe pain HEENT: Pupils are round and equally reacting to light. EOMI. No scleral icterus. No conjunctival pallor. Normocephalic, atraumatic. No pharyngeal erythema. No thyromegaly. CARDIOVASCULAR: S1 and S2 present. No murmurs, rubs, or gallops. PULMONARY: Chest is clear to auscultation, no wheezing or crackles. ABDOMEN: Distended nontender significant ascites with tingling numbness as well as fluid MUSCULOSKELETAL: No joint swelling or deformity. EXTREMITIES: No cyanosis, clubbing, or pedal edema. NEUROLOGICAL: Weakness in the left lower x-ray as mentioned above SKIN: No rashes. - Labs CBC & Chem 7: 08/16/19 08:00 08/16/19 08:00 Labs: Abnormal Lab Results - Last 24 Hours (Table) 08/15/19 08/15/19 08/15/19 Range/Units 14:45 14:45 16:45 WBC (3.8-10.6) k/uL RBC 3.49 L (3.80-5.40) m/uL Hgb 11.3 L (11.4-16.0) gm/dL Hct (34.0-46.0) % MCV (80.0-100.0) fL RDW 15.6 H (11.5-15.5) % Neutrophils # 8.2 H (1.3-7.7) k/uL Lymphocytes # 0.4 L (1.0-4.8) k/uL APTT (22.0-30.0) sec Carbon Dioxide (22-30) mmol/L Glucose 147 H (74-99) mg/dL POC Glucose (mg/dL) (75-99) mg/dL Total Protein 5.9 L (6.3-8.2) g/dL Albumin 3.1 L (3.5-5.0) g/dL Amylase <30 L (30-110) U/L Lipase 15 L (23-300) U/L Ur Specific [place] >1.050 H (1.001-1.035) Urine Protein Trace H (Negative) Urine Ketones 1+ H (Negative) Ur Leukocyte Esterase Trace H (Negative) Urine Mucus Occasional H (None) /hpf 12/24/19 12/25/19 12/25/19 Range/Units 23:34 08:00 08:00 WBC 12.3 H (3.8-10.6) k/uL RBC 3.02 L (3.80-5.40) m/uL Hgb 9.7 L D (11.4-16.0) gm/dL Hct 31.2 L (34.0-46.0) % MCV 103.4 H D (80.0-100.0) fL RDW 15.9 H (11.5-15.5) % Neutrophils # 10.9 H (1.3-7.7) k/uL Lymphocytes # 0.7 L (1.0-4.8) k/uL APTT >200.0 H* (22.0-30.0) sec Carbon Dioxide 21 L (22-30) mmol/L Glucose 147 H (74-99) mg/dL POC Glucose (mg/dL) (75-99) mg/dL Total Protein (6.3-8.2) g/dL Albumin (3.5-5.0) g/dL Amylase (30-110) U/L Lipase (23-300) U/L Ur Specific [place] (1.001-1.035) Urine Protein (Negative) Urine Ketones (Negative) Ur Leukocyte Esterase (Negative) Urine Mucus (None) /hpf 08/16/19 08/16/19 Range/Units 08:00 10:49 WBC (3.8-10.6) k/uL RBC (3.80-5.40) m/uL Hgb (11.4-16.0) gm/dL Hct (34.0-46.0) % MCV (80.0-100.0) fL RDW (11.5-15.5) % Neutrophils # (1.3-7.7) k/uL Lymphocytes # (1.0-4.8) k/uL APTT 134.6 H* (22.0-30.0) sec Carbon Dioxide (22-30) mmol/L Glucose (74-99) mg/dL POC Glucose (mg/dL) 229 H (75-99) mg/dL Total Protein (6.3-8.2) g/dL Albumin (3.5-5.0) g/dL Amylase (30-110) U/L Lipase (23-300) U/L Ur Specific [place] (1.001-1.035) Urine Protein (Negative) Urine Ketones (Negative) Ur Leukocyte Esterase (Negative) Urine Mucus (None) /hpf Assessment and Plan Plan: Right lower lobe pulmonary embolism acute: Patient will be on heparin because of above-mentioned issues, oncology will be consulted -Malignant ascites from her ovarian cancer will order ultrasound dated paracentesis therapeutic after which patient will be either started on lovenox or Eliquis. -Syncope patient will be monitored for any GI bleed Toradol will be discussed. -Back pain with a possible weakness in the left leg for which I'll consult neurology obtain MRI of lumbar thoracic spine will give her a dose of Decadron. -Stress ulcer prophylaxis with Protonix -hyperlipidemia -Moderate protein calorie malnutrition from cancer cachexia
[2019-08-16] MEDS: ONDANSETRON 4 MG/2 ML VIAL IVP PRN ×2 (12:17→21:21)
--- NOTE | 2019-08-16 16:44 | P.CNNES ---
History of Present Illness Consult date: 08/16/19 Requesting physician: Mary Bobby Reason for Consult: Weakness in the legs History of Present Illness: Patient is a 73-year-old female, who has been diagnosed with metastatic ovarian cancer, has been complaining of chest pain for 3 days, came to the ER yesterday at 3:30 PM. Patient had a chest x-ray which revealed some scarring and atelectasis right lung base. No heart failure seen. Old granulomatous disease. Patient had a CTA of chest which revealed small emboli in the right lower lobe pulmonary artery. Right lower lobe infiltrate and atelectasis and right pleural effusion. Abdominal ascites. CT of abdomen and pelvis showed massive abdominal ascites that is increased compared to the last exam from 07/03/2019, consistent with malignant ascites. There are large bilateral ovarian cysts. Old granu lomatous disease. EKG shows normal sinus rhythm. Blood test shows WBC 9.1 hemoglobin 11.3 and platelets 185. PT/PTT is normal. Chem-20 is normal. UA showed no significant signs of infection. Patient has been started on heparin. Her PTT has gone up to > 200. Patient today at around 11 AM, was walking to the bathroom, when she started fainting, her caught her and ease her to the ground. Patient did not hit anything significant. Since then patient has been complaining of left-sided low back pain, with pain and aching in the left anterior thigh and knee region. She rates it 5/10. Denies any numbness. Denies any symptoms in the other 3 extremities. Denies headache, diplopia. She also has been throwing up since an hour ago. Prior to this incident, she has not had any back pain, or leg pain as described. Patient has been receiving intravenous chemotherapy every 4 weeks since October or November 2018. The last chemotherapy she received was a week ago. She never had such symptoms with chemotherapy. Review of Systems As above in detail. Patient denies any chest pain. She does have aches and pains related to her metastatic ovarian cancer. Patient currently gets IV chemotherapy every 4 weeks since October or November 2018. The last chemotherapy was 1 week ago. Past Medical History Past Medical History: Cancer, Hyperlipidemia Additional Past Medical History / Comment(s): chemo started 11/25/18 (plan for 6 treatments) Stage 4 ovarian CA History of Any Multi-Drug Resistant Organisms: None Reported Past Surgical History: Tubal Ligation Additional Past Surgical History / Comment(s): ectopic , multi paracentesis Past Anesthesia/Blood Transfusion Reactions: No Reported Reaction Past Psychological History: Anxiety Smoking Status: Former smoker Past Alcohol Use History: None Reported Past Drug Use History: Marijuana - Past Family History Mother Family Medical History: No Reported History Medications and Allergies Home Medications Medication Instructions Recorded Confirmed Type Vitamin E (Dl,Tocopheryl Acet) 400 unit PO DAILY 05/15/19 08/15/19 History [Vitamin E] Acetaminophen Tab [Tylenol Tab] 650 mg PO Q6H PRN 08/15/19 08/15/19 History Allergies Allergy/AdvReac Type Severity Reaction Status Date / Time No Known Allergies Allergy Verified 08/15/19 17:10 Physical Examination - Vital Signs Vital Signs: Vital Signs Temp Pulse Pulse Resp BP BP Pulse Ox 08/16/19 16:05 97.7 F 95 18 109/59 93 L 08/16/19 11:30 97 18 95/52 94 L 08/16/19 11:15 90 18 116/63 95 08/16/19 11:00 90 18 96/55 98 08/16/19 10:53 88 16 119/57 94 L 08/16/19 10:43 94 16 106/60 93 L 08/16/19 07:55 97.8 F 84 18 115/58 94 L 08/16/19 04:00 98.3 F 80 18 112/75 95 08/16/19 00:00 74 18 08/15/19 23:01 98.1 F 74 18 117/70 97 08/15/19 20:00 98.4 F 75 18 110/64 96 08/15/19 18:07 98.1 F 75 18 121/65 93 L 08/15/19 17:26 98.6 F 71 16 122/71 96 Intake and Output 08/16/19 08/16/19 08/16/19 06:59 14:59 22:59 Intake Total 490.792 200 Balance 490.792 200 Intake: Intake, IV Titration 370.792 0 Amount Heparin Sod,Pork in 0.45% 90.792 0 NaCl 25,000 unit In 0.45 % NaCl 1 250ml.bag @ 18 UNITS/KG/HR 11.349 mls/hr IV .Q22H2M [facility] Rx#: [id number] Sodium Chloride 0.9% 1, 200 000 ml @ 100 mls/hr IV . Q10H [facility] Rx#:[id number] Sodium Chloride 0.9% 1, 80 000 ml @ 20 mls/hr IV . Q24H [facility] Rx#:[id number] Oral 120 200 Other: Voiding Method Toilet # Voids 2 3 Weight 65.1 kg On examination patient is an elderly female, who appears somewhat pale, cachectic. Patient is in no obvious distress. Her speech and language functions are normal. On cranial nerve examination, pupils are round and reacting, visual [place] are full, extraocular muscles are intact. Face is sym metric, tongue protrudes the midline. Palatal elevation and sensation normal. On muscle strength testing there is no pronator drift and the strength is normal in both arms and legs distally and proximally except left hip, which is 4. Reflexes are 1 in the upper limbs, 2 in the lower limbs and plantars are probably upgoing bilaterally. Sensory touch is equal. No ataxia for [id number] testing, although she is slightly ataxic for gzfv-[id number] testing on the left. Tone and bulk of muscles normal. Gait deferred. No carotid bruit or murmur. Results - Laboratory Findings CBC and BMP: 08/16/19 08:00 08/16/19 08:00 Abnormal Lab Findings: Abnormal Labs 08/15/19 08/15/19 08/15/19 14:45 14:45 16:45 WBC RBC 3.49 L Hgb 11.3 L Hct MCV RDW 15.6 H Neutrophils # 8.2 H Lymphocytes # 0.4 L APTT Carbon Dioxide Glucose 147 H POC Glucose (mg/dL) Total Protein 5.9 L Albumin 3.1 L Amylase <30 L Lipase 15 L Ur Specific [place] >1.050 H Urine Protein Trace H Urine Ketones 1+ H Ur Leukocyte Esterase Trace H Urine Mucus Occasional H 08/15/19 08/16/19 08/16/19 23:34 08:00 08:00 WBC 12.3 H RBC 3.02 L Hgb 9.7 L D Hct 31.2 L MCV 103.4 H D RDW 15.9 H Neutrophils # 10.9 H Lymphocytes # 0.7 L APTT >200.0 H* Carbon Dioxide 21 L Glucose 147 H POC Glucose (mg/dL) Total Protein Albumin Amylase Lipase Ur Specific [place] Urine Protein Urine Ketones Ur Leukocyte Esterase Urine Mucus 08/16/19 08/16/19 08:00 10:49 WBC RBC Hgb Hct MCV RDW Neutrophils # Lymphocytes # APTT 134.6 H* Carbon Dioxide Glucose POC Glucose (mg/dL) 229 H Total Protein Albumin Amylase Lipase Ur Specific [place] Urine Protein Urine Ketones Ur Leukocyte Esterase Urine Mucus Assessment and Plan Assessment: * 73-year-old female, who has developed acute left-sided low back pain, with radiation to the left anterior thigh region since she had a near syncopal episode few hours ago (while in the hospital). Patient did not fall or hit the ground, as her caught her. Patient is currently on heparin with elevated PTT, therefore at risk of psoas hematoma or ICH. * New onset nausea vomiting, could be related to severe ascites. Rule out intracranial/cerebellar process. * Metastatic ovarian cancer. * Acute pulmonary embolism, on heparin. Plan: * Agree with checking an MRI of the brain and lumbar spine with IV contrast. * We will follow the results.
[2019-08-16] MEDS: MORPHINE SULFATE 4 MG/ML SYRINGE IV PRN ×2 (16:59→21:21)
[2019-08-16] MEDS: HEPARIN SOD,PORK IN 0.45% NACL 25,000 UNIT in 0.45% NACL 1 250ML.BAG IV SCH (17:00)
--- NOTE | 2019-08-16 18:10 | P.CONS ---
History of Present Illness - Reason for Consult Consult date: 08/16/19 PE, ovarian cancer Requesting physician: Thomas E Serge - Chief Complaint chest pain - History of Present Illness Ms. Hammond is a very pleasant 73-year-old female who follows with Dr. Gilman for metastatic ovarian cancer, here for chest discomfort. Unfortunately I do not h ave access to our clinic EMR today. Sounds like patient was receiving chemotherapy since spring, last dose was about a week ago. Presents now with chest discomfort. CT of the chest showed a small right lower lobe PE as well as pleural effusions and an infiltrate in the right lower lobe. CT of the abdomen and pelvis showed large ascites and bilateral ovarian cysts. She was started on heparin drip and admitted. She had a syncopal episode this morning while her PTT was over 200. She did not fall, as her caught her fall. She began having right upper/lateral back pain since then. Her repeat hemoglobin went from 11 down to 9.7. There is concern for possible bleeding. Repeat PTT is now 134. Negative FOBT. She is now having back pain as well. Neurology on board. Denies any prolonged travel or recent hospital stay or immobility. No recent surgeries other than paracenteses that she gets regularly. Plan is to repeat paracenteses soon as well. No other complaints at this time. Review of Systems All systems: negative Constitutional: Reports as per HPI Past Medical History Past Medical History: Cancer, Hyperlipidemia Additional Past Medical History / Comment(s): chemo started 11/25/18 (plan for 6 treatments) Stage 4 ovarian CA History of Any Multi-Drug Resistant Organisms: None Reported Past Surgical History: Tubal Ligation Additional Past Surgical History / Comment(s): ectopic , multi paracentesis Past Anesthesia/Blood Transfusion Reactions: No Reported Reaction Past Psychological History: Anxiety Smoking Status: Former smoker Past Alcohol Use History: None Reported Past Drug Use History: Marijuana - Past Family History Mother Family Medical History: No Reported History Medications and Allergies Home Medications Medication Instructions Recorded Confirmed Type Vitamin E (Dl,Tocopheryl Acet) 400 unit PO DAILY 05/15/19 08/15/19 History [Vitamin E] Acetaminophen Tab [Tylenol Tab] 650 mg PO Q6H PRN 08/15/19 08/15/19 History Allergies Allergy/AdvReac Type Severity Reaction Status Date / Time No Known Allergies Allergy Verified 08/15/19 17:10 Physical Exam Vitals: Vital Signs Temp Pulse Pulse Resp BP BP Pulse Ox 08/16/19 16:05 97.7 F 95 18 109/59 93 L 08/16/19 11:30 97 18 95/52 94 L 08/16/19 11:15 90 18 116/63 95 08/16/19 11:00 90 18 96/55 98 08/16/19 10:53 88 16 119/57 94 L 08/16/19 10:43 94 16 106/60 93 L 08/16/19 07:55 97.8 F 84 18 115/58 94 L 08/16/19 04:00 98.3 F 80 18 112/75 95 08/16/19 00:00 74 18 08/15/19 23:01 98.1 F 74 18 117/70 97 08/15/19 20:00 98.4 F 75 18 110/64 96 08/15/19 18:07 98.1 F 75 18 121/65 93 L 08/15/19 17:26 98.6 F 71 16 122/71 96 Intake and Output 08/16/19 08/16/19 08/16/19 06:59 14:59 22:59 Intake Total 490.792 200 39.775 Balance 490.792 200 39.775 Intake: Intake, IV Titration 370.792 0 39.775 Amount Heparin Sod,Pork in 0.45% 90.792 0 39.775 NaCl 25,000 unit In 0.45 % NaCl 1 250ml.bag @ 18 UNITS/KG/HR 11.349 mls/hr IV .Q22H2M [facility] Rx#: [id number] Sodium Chloride 0.9% 1, 200 000 ml @ 100 mls/hr IV . Q10H [facility] Rx#:[id number] Sodium Chloride 0.9% 1, 80 000 ml @ 20 mls/hr IV . Q24H [facility] Rx#:[id number] Oral 120 200 Other: Voiding Method Toilet # Voids 2 3 Weight 65.1 kg Gen.: NAD HEENT: Mucosa moist, minimal conjunctival pallor. Neck: Supple, no thyromegaly. Lymph: No cervical lymphadenopathy. Lungs: CTAB. Heart: Regular rate. Abdomen: Soft, nontender. MSK: No obvious deformities. Skin: No jaundice. Psych: Appropriate affect Neuro: Alert and oriented 3. Results CBC & Chem 7: 08/16/19 08:00 08/16/19 08:00 Labs: Abnormal Lab Results - Last 24 Hours (Table) 08/15/19 08/15/19 08/16/19 Range/Units 16:45 23:34 08:00 WBC 12.3 H (3.8-10.6) k/uL RBC 3.02 L (3.80-5.40) m/uL Hgb 9.7 L D (11.4-16.0) gm/dL Hct 31.2 L (34.0-46.0) % MCV 103.4 H D (80.0-100.0) fL RDW 15.9 H (11.5-15.5) % Neutrophils # 10.9 H (1.3-7.7) k/uL Lymphocytes # 0.7 L (1.0-4.8) k/uL APTT >200.0 H* (22.0-30.0) sec Carbon Dioxide (22-30) mmol/L Glucose (74-99) mg/dL POC Glucose (mg/dL) (75-99) mg/dL Ur Specific [place] >1.050 H (1.001-1.035) Urine Protein Trace H (Negative) Urine Ketones 1+ H (Negative) Ur Leukocyte Esterase Trace H (Negative) Urine Mucus Occasional H (None) /hpf 08/16/19 08/16/19 08/16/19 Range/Units 08:00 08:00 10:49 WBC (3.8-10.6) k/uL RBC (3.80-5.40) m/uL Hgb (11.4-16.0) gm/dL Hct (34.0-46.0) % MCV (80.0-100.0) fL RDW (11.5-15.5) % Neutrophils # (1.3-7.7) k/uL Lymphocytes # (1.0-4.8) k/uL APTT 134.6 H* (22.0-30.0) sec Carbon Dioxide 21 L (22-30) mmol/L Glucose 147 H (74-99) mg/dL POC Glucose (mg/dL) 229 H (75-99) mg/dL Ur Specific [place] (1.001-1.035) Urine Protein (Negative) Urine Ketones (Negative) Ur Leukocyte Esterase (Negative) Urine Mucus (None) /hpf PTT earlier today was over 200, repeat was 134.6. FOBT negative. CT scan - abdomen: report reviewed CT scan - chest: report reviewed CT scan - pelvis: report reviewed Assessment and Plan Assessment: 1. PE, likely provoked due to malignancy 2. Anemia, acute decrease in Hgb, likely due to bleed, possibly due to injury from near syncopal episode while supratherapeutic on heparin drip. 3. metastatic ovarian cancer, recently started on new chemotherapy 4. Chest pain likely due to PE 5. Back pain, possibly due to MSK injury and intramuscular bleed from near syncopal episode/near fall. 6. 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 Hammond is a very pleasant 73-year-old female with metastatic ovarian cancers here for chest pain, found to have a small right lower lobe PE and possible pneumonia. Has been on chemotherapy since spring 2018. Will hold chemotherapy while patient is inpatient. Agree with heparin drip for her likely provoked PE from metastatic ovarian cancer. No other obvious provoking factors, although with her treatments she does lead a sedentary lifestyle due to fatigue from malignancy and chemotherapy. Would monitor PTT for closely and avoid supratherapeutic PTT. Acute drop in hemoglobin likely to possible bleed after syncopal episode, although her caught her fall. Agree with obtaining imaging of the spine and monitoring hemoglobin. Supportive transfusions for further drop in hemoglobin. Her PE is small and not causing any significant cardiopulmonary compromise at this point. Would obtain lower extremity Dopplers to rule out further lower extremity DVT however if bleeding persists then anticoagulation may need to be held. If there is persistent lower extremity clots then she might benefit from an IVC filter in the setting of needing to stop anticoagulation. Otherwise agree with neurologic workup as per neurology for syncopal episode and pain, and paracentesis for symptomatic relief of her ascites. Discussed with patient in detail and she was agreeable to the plan. All of her questions were answered.
[2019-08-16] MEDS: SODIUM CHLORIDE 0.9% 1,000 ML IV SCH (19:25)
[2019-08-16 20:36] VITALS: TEMP 97.3
[2019-08-16 23:28] VITALS: BP 91/51; PULSE 75; RESP 18
[2019-08-17] MEDS ORDERED: EPINEPHrine 10 ML SYRINGE (0.1 MG/ML) ONE (00:20)
[2019-08-17] MEDS ORDERED: SODIUM BICARB 8.4% 50 ML SYR (1 MEQ/ML) ONE (00:20)
[2019-08-17 00:29] LABS: Glucose,Whole Blood 200 mg/dL (75-99)
--- NOTE | 2019-08-17 01:31 | P.PN ---
Progress Note - Text Progress Note Date: 08/17/19 Dunia Canales Team Note Received notification of Dunia Parker @ 00:23. Arrived at patient's room @ 00:25. Notified that the patient had a faint pulse with bradycardia and was having agonal breathing. Upon arrival, the patient was noted to be pale and undergoing CPR. An advanced airway was placed. Breath sounds were appreciated bilaterally. Patient was in asystole with intermittent PEA. CPR was performed for 30 minutes with Epinephine IVP x 9 and Sodium Bicarb x 1 administered. The patient did not regain a pulse. She was pronounced at 00:50 with asystole on the monitor and no pulse. The was notified, who arrived at the bedside at 1:00. Provided support to the patient's spouse. General: Elderly F, pale, no spontaneous movements noted HEENT: NC/AT, anicteric sclerae, pupils fixed and dilated Cardiovascular: No heart sounds appreciated. No carotid or femoral pulses noted Lungs: No breath sounds appreciated Abdominal: Mildly distended, soft Skin: Cold, pale Neuro: No spontaneous movements noted. Unresponsive to stimuli
--- NOTE | 2019-08-17 16:06 | P.DS ---
Providers Date of admission: 08/15/19 17:02 Attending physician: Thomas Valentine MD Consults: 08/15/19 16:45 Consult Physician Stat Consulting Provider: Valetne Gilman Consult Reason/Comments: PE, stage 4 ovarian ca, ascites Do you want consulting provider notified?: Yes 08/16/19 12:08 Consult Physician Routine Consulting Provider: Lydia Tucker Consult Reason/Comments: weakness in the Do you want consulting provider notified?: Yes Primary care physician: Tanner Luna Hospital Course: Patient was admitted for pulmonary embolism and patient had a syncopal episode yesterday for which patient underwent lengthy evaluation as mentioned above.. Yesterday there was no clinical evidence of JVD but that was a concern yesterday as her PTT was very high because of which are Toradol was discontinued. Patient has history of ovarian cancer Patient unfortunately coded last night at 1225 midnight and the CPR was initiated and patient was pulseless electrical activity and his asystole patient received 9 doses of epinephrine please refer to the resuscitation document from the physician who ran the cord. Patient was pronounced at 00 50 on 08/17/2019. Preliminary cause of pulmonary embolism with contribution from ovarian cancer Patient Condition at Discharge: Stable Plan - Discharge Summary New Discharge Prescriptions: No Action Vitamin E (Dl,Tocopheryl Acet) [Vitamin E] 400 unit PO DAILY Acetaminophen Tab [Tylenol Tab] 650 mg PO Q6H PRN PRN Reason: Pain Discharge Medication List Vitamin E (Dl,Tocopheryl Acet) [Vitamin E] 400 unit PO DAILY 05/15/19 [History] Acetaminophen Tab [Tylenol Tab] 650 mg PO Q6H PRN 08/15/19 [History] Follow up Appointment(s)/Referral(s): Tanner Luna MD [Primary Care Provider] - 1-2 days Discharge Disposition: - Preliminary Cause of Preliminary Cause of : Pulmonary embolism
== END 2019-08-17 01:00 | disposition expired | DRG 175 ==
LOC: EC 14:31 → 3SCARD 17:02
PROVIDERS: ADMIT Internal Medicine; ATTEND Internal Medicine
PROC: 5A12012 Performance of Cardiac Output, Single, Manual (ICD-10-PCS; principal; 2019-08-17)
PROC: 0BH17EZ Insertion of Endotracheal Airway into Trachea, Via Natural or Artificial Opening (ICD-10-PCS; 2019-08-17)
DX: I26.99 Other pulmonary embolism without acute cor pulmonale (principal); J18.9 Pneumonia, unspecified organism; C56.9 Malignant neoplasm of unspecified ovary; J90 Pleural effusion, not elsewhere classified; R18.0 Malignant ascites; D62 Acute posthemorrhagic anemia; E44.0 Moderate protein-calorie malnutrition; J98.11 Atelectasis; R64 Cachexia; C79.9 Secondary malignant neoplasm of unspecified site; D68.32 Hemorrhagic disorder due to extrinsic circulating anticoagulants; I46.9 Cardiac arrest, cause unspecified; E78.5 Hyperlipidemia, unspecified; F41.9 Anxiety disorder, unspecified; K59.03 Drug induced constipation; N83.201 Unspecified ovarian cyst, right side; N83.202 Unspecified ovarian cyst, left side; T40.605A Adverse effect of unspecified narcotics, initial encounter; Z87.891 Personal history of nicotine dependence; M25.551 Pain in right hip; M54.9 Dorsalgia, unspecified; M62.89 Other specified disorders of muscle; Z98.51 Tubal ligation status; R55 Syncope and collapse; W19.XXXA Unspecified fall, initial encounter; Z79.899 Other long term (current) drug therapy
CPT/HCPCS: 36415; 71046; 71275; 74177; 80048; 80053; 81001; 82150; 82272; 83605; 83690; 83880; 84484; 85025; 85610; 85730; 87040; 93005; 96361; 96365; 96375; 96376; 99285